=== PATIENT | male | born 1970 | race Caucasian/White ===

== ENCOUNTER 2017-09-12 11:38 | Outpatient (CLI) | payer MEDICARE ==
--- NOTE | 2017-09-12 18:46 | RAD ---
RIGHT THUMB THREE VIEWS: 09/12/2017 HISTORY: FINDINGS: No fracture or joint abnormality is seen. The adjacent bones are unremarkable. IMPRESSION: No acute bony finding. POS: HOME
== END 2017-09-12 11:39 | disposition home or self-care (01) ==
LOC: BURRAD 11:38
PROVIDERS: ATTEND Family Medicine
DX: M79.644 Pain in right finger(s) (principal)

== ENCOUNTER 2017-12-25 17:27 | Emergency (ER) | payer MEDICARE ==
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
== END 2017-12-25 18:50 | disposition home or self-care (01) ==
LOC: BURERS 17:27
DX: S13.9XXA Sprain of joints and ligaments of unspecified parts of neck, initial encounter (principal); S00.83XA Contusion of other part of head, initial encounter; F07.81 Postconcussional syndrome; Y04.8XXA Assault by other bodily force, initial encounter
CPT/HCPCS: 70450; 70486; 72125

== ENCOUNTER 2020-10-16 06:04 | Emergency (ER) | payer MEDICARE ==
[2020-10-16] MEDS ORDERED: Ketorolac Tromethamine 30 MG/ML VIAL ONE (06:46)
[2020-10-16] MEDS ORDERED: methylPREDNISolone Sod Succ/PF 125 MG/2 ML VIAL ONE (06:46)
[2020-10-16] MEDS ORDERED: Morphine 10 MG/ML VIAL ONE (06:46)
[2020-10-16] MEDS ORDERED: Morphine 4 MG/ML VIAL ONE (07:26)
[2020-10-16] MEDS ORDERED: Ondansetron PF 4 MG/2 ML Vial ONE ×3 (07:53→09:27)
[2020-10-16] MEDS ORDERED: Promethazine HCl 25 MG/ML VIAL ONE (08:43)
== END 2020-10-16 11:02 | disposition home or self-care (01) ==
LOC: BURERS 06:04
DX: M54.5 Low back pain (principal)
CPT/HCPCS: 96374; 96375; 96376; J1885; J2270; J2405; J2550; J2930

== ENCOUNTER 2022-01-18 14:32 | Outpatient (CLI) | payer MEDICARE | END 2022-01-18 14:33 | disposition home or self-care (01) | LOC: BURRAD 14:32 | PROVIDERS: ATTEND Nurse Practitioner Family | DX: M51.16 Intervertebral disc disorders with radiculopathy, lumbar region (principal) | CPT/HCPCS: 72100 ==